=== PATIENT | female | born 1960 | race Caucasian/White ===

== ENCOUNTER → 2018-03-14 | Outpatient (REF) | payer BC, OTHER ==
[2018-03-19 14:18] LABS: Lyme Disease IgG Ab 18 kDa Ban Present (.); Lyme Disease IgG Ab 23 kDa Ban Absent (.); Lyme Disease IgG Ab 28 kDa Ban Absent (.); Lyme Disease IgG Ab 30 kDa Ban Absent (.); Lyme Disease IgG Ab 39 kDa Ban Present (.); Lyme Disease IgG Ab 41 kDa Ban Present (.); Lyme Disease IgG Ab 45 kDa Ban Absent (.); Lyme Disease IgG Ab 58 kDa Ban Absent (.); Lyme Disease IgG Ab 66 kDa Ban Absent (.); Lyme Disease IgG Ab 93 kDa Ban Absent (.); Lyme Disease IgG West Blot Int Negative (.); Lyme Disease IgG/IgM Antibodie 1.22 ISR (0.00-0.90); Lyme Disease IgM Ab 23 kDa Ban Present (.); Lyme Disease IgM Ab 39 kDa Ban Absent (.); Lyme Disease IgM Ab 41 kDa Ban Absent (.); Lyme Disease IgM Ab Quantitati <0.80 index (0.00-0.79); Lyme Disease IgM West Blot Int Negative (.)
== END ==
LOC: M LAB REF 17:04
DX: S40.921A Unspecified superficial injury of right upper arm, initial encounter (principal); W57.XXXA Bitten or stung by nonvenomous insect and other nonvenomous arthropods, initial encounter; Y92.009 Unspecified place in unspecified non-institutional (private) residence as the place of occurrence of the external cause
CPT/HCPCS: 86617

== ENCOUNTER → 2018-09-06 | Outpatient (REF) | payer OTHER | LOC: M SFHCLERA 17:58 | PROVIDERS: ATTEND Nurse Practitioner Family | DX: Z53.9 Procedure and treatment not carried out, unspecified reason (principal); R53.81 Other malaise ==

== ENCOUNTER → 2019-03-03 | Outpatient (REF) | payer OTHER | LOC: M SFHCLERA 19:07 | PROVIDERS: ATTEND Nurse Practitioner Family | DX: N30.00 Acute cystitis without hematuria (principal) ==

== ENCOUNTER 2020-02-19 16:37 | Emergency (ER) | payer BC | END 2020-02-19 17:50 | disposition home or self-care (01) | LOC: M ED 16:37 | DX: M25.462 Effusion, left knee (principal); E78.5 Hyperlipidemia, unspecified; Z79.899 Other long term (current) drug therapy ==

== ENCOUNTER → 2021-01-13 | Outpatient (REF) | payer BC | LOC: M LAB REF 11:33 | PROVIDERS: ATTEND Physician Assistant Medical | DX: M25.541 Pain in joints of right hand (principal); M25.542 Pain in joints of left hand ==

== ENCOUNTER → 2021-05-03 | Outpatient (REF) | payer BC ==
[2021-05-03 17:00] LABS: APPEARANCE, URINE CLOUDY (CLEAR); BACTERIA, URINE AUTO 1+ (NEGATIVE); BILIRUBIN, URINE AUTO NEGATIVE (NEGATIVE); BLOOD, URINE BLOOD 3+ (NEGATIVE); COLOR, URINE YELLOW (YELLOW); GLUCOSE, URINE (UA) AUTO NEGATIVE (NEGATIVE); KETONE, URINE AUTO NEGATIVE (NEGATIVE); LEUKOCYTE ESTERASE, URINE AUTO 3+ (NEGATIVE); NITRITE, URINE AUTO POSITIVE (NEGATIVE); PROTEIN, URINE AUTO 2+ mg/dL (NEGATIVE); RBC, URINE AUTO TNTC /HPF (0-3); SQUAMOUS EPITHELIAL CELL UR AU 2 /HPF (0-6); WBC, URINE AUTO TNTC /HPF (0-3)
== END ==
LOC: M LAB REF 16:14
PROVIDERS: ATTEND Physician Assistant
DX: R30.0 Dysuria (principal)

== ENCOUNTER → 2022-10-19 | Outpatient (CLI) | payer BC ==
[~2022-10-19] MED LIST: ISOVUE-300 61% 100ML VIAL ONE; LIDOCAINE 1% MDV 20ML VIAL ONE; methylPREDNISolone 80MG/ML SUSP 1ML VIAL ONE
== END ==
LOC: M PLAIMG 12:25
PROVIDERS: ATTEND Orthopaedic Surgery
DX: M16.11 Unilateral primary osteoarthritis, right hip (principal)
CPT/HCPCS: 20610; 77002; J1040; Q9967

== ENCOUNTER 2023-01-21 07:58 | Day surgery (SDC) | payer BC ==
[~2023-01-21] VITALS: Ht 167.6 cm; Wt 70.8 kg
[~2023-01-21 07:58] MED LIST changes: +ACET-683 PO; +ATOR1TAB19 PO; +BEE580CA PO; +BUPR300T92 PO; -ISOVUE-300 61% 100ML VIAL ONE; +LEVO125T4 PO; -LIDOCAINE 1% MDV 20ML VIAL ONE; +NS 1,000 ML IV ONE; -methylPREDNISolone 80MG/ML SUSP 1ML VIAL ONE
[2023-01-21] MEDS ORDERED: propofoL 200 MG/20 ML VIAL As Ordered ONE ×2 (09:03→09:52)
[2023-01-21] MEDS ORDERED: MIDAZOLAM INJ 2MG/2ML VIAL As Ordered ONE (09:05)
[2023-01-21 10:08] VITALS: TEMP 97.3
[2023-01-21 10:37] VITALS: BP 124/76; O2SAT 99
== END 2023-01-21 11:05 | disposition home or self-care (01) ==
LOC: M OPP 07:58
PROVIDERS: ATTEND Internal Medicine Gastroenterology
DX: Z12.11 Encounter for screening for malignant neoplasm of colon (principal); K64.0 First degree hemorrhoids; Z79.02 Long term (current) use of antithrombotics/antiplatelets; Z79.890 Hormone replacement therapy; Z79.899 Other long term (current) drug therapy
CPT/HCPCS: 45378; J2250

== ENCOUNTER → 2023-02-07 | Outpatient (CLI) | payer BC ==
[~2023-02-07] MED LIST changes: +ISOVUE-300 61% 100ML VIAL As Ordered ONE; +LIDOCAINE 1% MDV 20ML VIAL As Ordered ONE; -NS 1,000 ML IV ONE; +methylPREDNISolone 80MG/ML SUSP 1ML VIAL As Ordered ONE
== END ==
LOC: M RAD 15:18
PROVIDERS: ATTEND Orthopaedic Surgery
DX: M16.11 Unilateral primary osteoarthritis, right hip (principal)
CPT/HCPCS: 20610; 77002; J1040; Q9967